=== PATIENT | female | born 1980 | race Caucasian/White ===

== ENCOUNTER 2022-01-31 23:58 | Inpatient (IN) | payer OTHER, SELFPAY ==
--- NOTE | ~2022-01-31 | US_ITS ---
EXAMINATION: US ABDOMEN COMPLETE CLINICAL INFORMATION: Elevated LFTs. COMPARISON: None TECHNIQUE: Real-time imaging of the abdominal viscera. FINDINGS: PANCREAS: Most of the pancreas is obscured by gas. ABDOMINAL AORTA: The proximal, mid, and distal segments are normal in caliber. INFERIOR VENA CAVA: Visualized portions are normal. LIVER: Liver measures 16.4 cm and is slightly enlarged. The liver contour is normal. There is diffuse increased liver echogenicity. No focal hepatic lesion. There is no intrahepatic biliary duct dilatation seen. GALLBLADDER: Normal. The gallbladder is physiologically distended without evidence of stones, sludge, polyps, wall thickening or pericholecystic fluid. COMMON BILE DUCT: Normal in caliber measuring 0.4 cm in diameter. RIGHT KIDNEY: Normal. No hydronephrosis. No renal calculi or focal parenchymal lesions. The kidney measures 10.5 cm in maximum dimension. LEFT KIDNEY: Normal. No hydronephrosis. No renal calculi or focal parenchymal lesions. The kidney measures 10.2 cm in maximum dimension. SPLEEN: Normal. The spleen measures 8.0 cm in maximum dimension. FREE FLUID: None. US/US abdomen complete IMPRESSION: Mild hepatomegaly with mild hepatic steatosis. No focal lesion seen. Otherwise unremarkable complete abdomen ultrasound.
[2022-02-01 00:15] VITALS: BP 142/73; PULSE 90; RESP 16; TEMP 36.8; O2SAT 97
[2022-02-01] MEDS: traZODone HCL 50 MG TABLET PO ×2 (01:23→02:20)
[2022-02-01] MEDS: hydrOXYzine HCL 25 MG TABLET PO ×2 (01:23→23:23)
[2022-02-01] MEDS: Nicotine Polacrilex 2 MG GUM 4 MG BUCCAL ×2 (01:23→15:11)
[2022-02-01 01:46] VITALS: BMI 21.5
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
[2022-02-01] MEDS: Folic Acid 1 MG TABLET PO (08:52)
[2022-02-01] MEDS: Thiamine HCL 100 MG TABLET PO (08:52)
[2022-02-01] MEDS: Multivitamin TABLET 1 TAB PO (08:52)
[2022-02-01 09:11] VITALS: BP 106/58; PULSE 95; RESP 17; TEMP 36.8; O2SAT 96
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
[2022-02-01] MEDS: Gabapentin 600 MG TABLET PO ×2 (15:14→20:56)
[2022-02-01] MEDS: DULoxetine HCl 30 MG CAPSULE.DR PO (15:14)
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
[2022-02-01] MEDS: Nicotine 21 MG PATCH.TD24 TRANSDERMA (16:42)
[2022-02-01] MEDS: oxyCODONE HCl Immed Release 5 MG TABLET 10 MG PO (20:08)
[2022-02-01] MEDS: Acetaminophen 325 MG TABLET 650 MG PO (20:10)
[2022-02-01] MEDS: Amitriptyline HCl 50 MG TABLET PO (20:56)
[2022-02-01 21:06] VITALS: BP 122/84; PULSE 99; RESP 18; TEMP 36.6; O2SAT 100
[2022-02-01] MEDS: Amitriptyline HCl 25 MG TABLET PO (23:23)
--- NOTE | 2022-02-02 08:00 | ECG_ITS ---
Test Reason : POST OVERDOSE Blood Pressure : / mmHG Vent. Rate : 079 BPM Atrial Rate : 079 BPM P-R Int : 154 ms QRS Dur : 100 ms QT Int : 378 ms P-R-T Axes : 081 048 057 degrees QTc Int : 433 ms Normal sinus rhythm Possible Left atrial enlargement RSR' or QR pattern in V1 suggests right ventricular conduction delay Borderline ECG No previous ECGs available Referred By: Saran Orourke Electronically Signed By:MABEL ESCOBAR
[2022-02-02 08:11] VITALS: BP 100/64; PULSE 106; RESP 17; TEMP 36.7; O2SAT 99
[2022-02-02] MEDS: Thiamine HCL 100 MG TABLET PO (08:20)
[2022-02-02] MEDS: Gabapentin 600 MG TABLET PO ×3 (08:20→20:17)
[2022-02-02] MEDS: Multivitamin TABLET 1 TAB PO (08:20)
[2022-02-02] MEDS: Nicotine 21 MG PATCH.TD24 TRANSDERMA (08:20)
[2022-02-02] MEDS: Folic Acid 1 MG TABLET PO (08:20)
[2022-02-02] MEDS: DULoxetine HCl 30 MG CAPSULE.DR PO (08:20)
[2022-02-02 08:42] LABS: Alanine Aminotransferase 166 U/L (0-31); Alkaline Phosphatase 128 U/L (39-117); Anion Gap 9 (12-20); Aspartate Amino Transferase 82 U/L (5-31); Bilirubin Total 0.4 mg/dL (0.0-1.0); Blood Urea Nitrogen 12 mg/dL (9-16); Calcium 9.7 mg/dL (8.4-10.2); Carbon Dioxide 32 mmol/L (22-29); Chloride 103 mmol/L (96-108); Cholesterol 218 mg/dL; Creatinine Clr Calc Pharmacy 93.3; Estimated Glomerular Filt Rate > 60; Glucose Fasting 90 mg/dL (60-99); HDL Cholesterol 62 mg/dL; LDL Cholesterol Calculated 139 mg/dl; Potassium 4.3 mmol/L (3.3-5.1); Sodium 140 mmol/L (135-145); Thyroid Stimulating Hormone 1.84 uIU/mL (0.32-4.0); Total Protein 6.9 g/dL (6.5-8.0); Triglycerides 87 mg/dL
[2022-02-02] MEDS: Acetaminophen 325 MG TABLET 650 MG PO ×2 (09:02→20:17)
--- NOTE | 2022-02-02 13:10 | P.PNPSI_ITS ---
Subjective Subjective Date of Service: 02/02/22 Reason For Visit: Depression s/p overdose Subjective Notes: Conditional Voluntary and 3 Day Interim History: 02/02: Improving mood. Depressed but no SI. Reflecting on serious OD. Asked for fresh air break. 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 OK to go on fresh air breaks. Ct meds per Dr Gamez Review of Systems Review of Systems negative except HPI Mental Status Exam Mental Status Exam Narrative: appropriately dressed and groomed in street clothes. no PMA/PMR. cooperative with interview, good eye contact. speech nml in amount, rate, loudness, tone, latency. thoughts linear and logical. affect somewhat flexible, normo-intense, non-labile (some tearfulness, though). mood thankful [to be alive]. does not recall any SI recently at all, despite her actions the day of the overdose. denies HI/AVH. Diagnostics Vital Signs (24Hr): Vital Signs - 24 hr 02/01/22 21:06 02/02/22 08:11 Temperature 97.9 F 98.0 F Pulse Rate 99 106 H Respiratory Rate 18 17 Blood Pressure 122/84 100/64 Pulse Oximetry 100 99 BMI result Body Mass Index 21.5 Labs Results: 02/02/22 07:33 Labs: Laboratory Results - last 48 hr 02/02/22 07:33 Sodium 140 Potassium 4.3 Chloride 103 Carbon Dioxide 32 H Anion Gap 9 L BUN 12 Creatinine 0.75 Estim Creat Clear Calc 93.3 Estimated GFR > 60 Fasting Glucose 90 Calcium 9.7 Total Bilirubin 0.4 AST 82 H ALT 166 H Alkaline Phosphatase 128 H Total Protein 6.9 Albumin 4.0 Triglycerides 87 Cholesterol 218 LDL Cholesterol, Calc 139 HDL Cholesterol 62 TSH 1.84 Medications Medications Current Medications Acetaminophen (Acetaminophen 325 Mg Tablet) 650 mg PO Q6H PRN PRN Reason: Headache/Pain Mild Scale (1-3) Last Admin: 02/02/22 09:02 Dose: 650 mg Documented by: Al Hydroxide/Mg Hydroxide (Magnesium Hydrox/Alum Hydrox 30 Ml Oral.Susp) 30 ml PO Q6H PRN PRN Reason: Heartburn/Nausea Amitriptyline HCl (Amitriptyline Hcl 50 Mg Tablet) 50 mg PO BEDTIME LESLIE Last Admin: 02/01/22 20:56 Dose: 50 mg Documented by: Amitriptyline HCl (Amitriptyline Hcl 25 Mg Tablet) 25 mg PO BEDTIME PRN PRN Reason: insomnia Last Admin: 02/01/22 23:23 Dose: 25 mg Documented by: Capsaicin (Capsaicin 0.025% Cream 60 Gm Tube) 1 appl TOPICAL QID PRN; Protocol PRN Reason: low back pain Duloxetine HCl (Duloxetine Hcl 30 Mg Capsule.Dr) 30 mg PO DAILY [facility] Last Admin: 02/02/22 08:20 Dose: 30 mg Documented by: Folic Acid (Folic Acid 1 Mg Tablet) 1 mg PO DAILY [facility] Last Admin: 02/02/22 08:20 Dose: 1 mg Documented by: Gabapentin (Gabapentin 600 Mg Tablet) 600 mg PO TID [facility] Last Admin: 02/02/22 08:20 Dose: 600 mg Documented by: Hydroxyzine HCl (Hydroxyzine Hcl 25 Mg Tablet) 25 mg PO BEDTIME PRN PRN Reason: Anxiety Last Admin: 02/01/22 23:23 Dose: 25 mg Documented by: Magnesium Hydroxide (Milk Of Magnesia 30 Ml Oral.Susp) 30 ml PO DAILY PRN PRN Reason: Constipation Multivitamins/Vitamin C (Multivitamin Tablet) 1 tab PO DAILY [facility] Last Admin: 02/02/22 08:20 Dose: 1 tab Documented by: Nicotine (Nicotine 21 Mg Patch.Td24) 21 mg TRANSDERMA DAILY [facility] Last Admin: 02/02/22 08:20 Dose: 21 mg Documented by: Nicotine Polacrilex (Nicotine Polacrilex 2 Mg Gum) 4 mg BUCCAL Q2H PRN PRN Reason: Nicotine Cravings Last Admin: 02/01/22 15:11 Dose: 4 mg Documented by: Oxycodone HCl (Oxycodone Hcl Immed Release 5 Mg Tablet) 10 mg PO DAILY PRN PRN Reason: severe pain Last Admin: 02/01/22 20:08 Dose: 10 mg Documented by: Thiamine HCl (Thiamine Hcl 100 Mg Tablet) 100 mg PO DAILY [facility] Last Admin: 02/02/22 08:20 Dose: 100 mg Documented by: Allergies Allergies Allergy/AdvReac Type Severity Reaction Status Date / Time morphine Allergy Itching Verified 02/01/22 00:31 Assessment & Plan Assessment & Plan (1) PTSD (post-traumatic stress disorder): Status: Acute Code(s): F43.10 - Post-traumatic stress disorder, unspecified Assessment and Plan: R/O (2) Borderline personality disorder: Status: Acute Code(s): F60.3 - Borderline personality disorder Assessment and Plan: R/O (3) Major depressive disorder: Status: Acute Code(s): F32.9 - Major depressive disorder, single episode, unspecified Plan anxiety and depression - start cymbalta as main Tx, elavil for insomnia. insomnia - elavil. titrate to effective dose. chronic pain - cymbalta, elavil, gabapentin, capsaicin, oxycodone. pt has never beeno nmore than 600 TID of gabapentin. titrate upward to max 3600 mg daily as needed for pain mgmt. has tried lidocaine without success. may use aspercreme if capsaicin ineffective. 02/02/22: Ct meds. OK for fresh air breaks. I spent minutes with the patient and/or on the patient floor today, great er than?50% of which was spent counseling/coordinating care. Reason for contiued inpatient stay Substantial Risk for: harm to self
[2022-02-02] MEDS: Amitriptyline HCl 50 MG TABLET PO (20:17)
[2022-02-02] MEDS: oxyCODONE HCl Immed Release 5 MG TABLET 10 MG PO (20:18)
[2022-02-02 20:40] VITALS: BP 132/78; PULSE 109; RESP 16; TEMP 36.6; O2SAT 99
[2022-02-02] MEDS: Amitriptyline HCl 25 MG TABLET PO (22:34)
[2022-02-02] MEDS: hydrOXYzine HCL 25 MG TABLET PO (22:34)
[2022-02-03 09:03] VITALS: BP 121/64; PULSE 106; RESP 17; TEMP 36.2; O2SAT 99
[2022-02-03] MEDS: Nicotine 21 MG PATCH.TD24 TRANSDERMA (09:19)
[2022-02-03] MEDS: DULoxetine HCl 30 MG CAPSULE.DR PO (09:19)
[2022-02-03] MEDS: Multivitamin TABLET 1 TAB PO (09:19)
[2022-02-03] MEDS: Gabapentin 600 MG TABLET PO ×3 (09:19→20:11)
[2022-02-03] MEDS: Thiamine HCL 100 MG TABLET PO (09:19)
[2022-02-03] MEDS: Folic Acid 1 MG TABLET PO (09:19)
--- NOTE | 2022-02-03 14:57 | P.PNPSI_ITS ---
Subjective Subjective Date of Service: 02/03/22 Reason For Visit: Depression s/p overdose Interim History: 02/02: Improving mood. Depressed but no SI. Reflecting on serious OD. Asked for fresh air break. 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 OK to go on fresh air breaks. Ct meds per Dr Gamez 02/03: Mood improving. Still has racing thoughts. OK for FA breakks. No SI. Elevated LFTs noted. Consult hospitalist Review of Systems Review of Systems negative except HPI Mental Status Exam Mental Status Exam Narrative: appropriately dressed and groomed in street clothes. no PMA/PMR. cooperative with interview, good eye contact. speech nml in amount, rate, loudness, tone, latency. thoughts linear and logical. affect somewhat flexible, normo-intense, non-labile (some tearfulness, though). mood thankful [to be alive]. does not recall any SI recently at all, despite her actions the day of the overdose. denies HI/AVH. Diagnostics Vital Signs (24Hr): Vital Signs - 24 hr 02/02/22 20:40 02/03/22 09:03 Temperature 98 F 97.2 F Pulse Rate 109 H 106 H Respiratory Rate 16 17 Blood Pressure 132/78 121/64 Pulse Oximetry 99 99 BMI result Body Mass Index 21.5 Labs Results: 02/02/22 07:33 Labs: Laboratory Results - last 48 hr 02/02/22 07:33 Sodium 140 Potassium 4.3 Chloride 103 Carbon Dioxide 32 H Anion Gap 9 L BUN 12 Creatinine 0.75 Estim Creat Clear Calc 93.3 Estimated GFR > 60 Fasting Glucose 90 Calcium 9.7 Total Bilirubin 0.4 AST 82 H ALT 166 H Alkaline Phosphatase 128 H Total Protein 6.9 Albumin 4.0 Triglycerides 87 Cholesterol 218 LDL Cholesterol, Calc 139 HDL Cholesterol 62 TSH 1.84 Medications Medications Current Medications Acetaminophen (Acetaminophen 325 Mg Tablet) 650 mg PO Q6H PRN PRN Reason: Headache/Pain Mild Scale (1-3) Last Admin: 02/02/22 20:17 Dose: 650 mg Documented by: Al Hydroxide/Mg Hydroxide (Magnesium Hydrox/Alum Hydrox 30 Ml Oral.Susp) 30 ml PO Q6H PRN PRN Reason: Heartburn/Nausea Amitriptyline HCl (Amitriptyline Hcl 50 Mg Tablet) 50 mg PO BEDTIME [facility] Last Admin: 02/02/22 20:17 Dose: 50 mg Documented by: Amitriptyline HCl (Amitriptyline Hcl 25 Mg Tablet) 25 mg PO BEDTIME PRN PRN Reason: insomnia Last Admin: 02/02/22 22:34 Dose: 25 mg Documented by: Capsaicin (Capsaicin 0.025% Cream 60 Gm Tube) 1 appl TOPICAL QID PRN; Protocol PRN Reason: low back pain Duloxetine HCl (Duloxetine Hcl 30 Mg Capsule.Dr) 30 mg PO DAILY [facility] Last Admin: 02/03/22 09:19 Dose: 30 mg Documented by: Folic Acid (Folic Acid 1 Mg Tablet) 1 mg PO DAILY [facility] Last Admin: 02/03/22 09:19 Dose: 1 mg Documented by: Gabapentin (Gabapentin 600 Mg Tablet) 600 mg PO TID [facility] Last Admin: 02/03/22 14:52 Dose: 600 mg Documented by: Hydroxyzine HCl (Hydroxyzine Hcl 25 Mg Tablet) 25 mg PO BEDTIME PRN PRN Reason: Anxiety Last Admin: 02/02/22 22:34 Dose: 25 mg Documented by: Magnesium Hydroxide (Milk Of Magnesia 30 Ml Oral.Susp) 30 ml PO DAILY PRN PRN Reason: Constipation Multivitamins/Vitamin C (Multivitamin Tablet) 1 tab PO DAILY [facility] Last Admin: 02/03/22 09:19 Dose: 1 tab Documented by: Nicotine (Nicotine 21 Mg Patch.Td24) 21 mg TRANSDERMA DAILY [facility] Last Admin: 02/03/22 09:19 Dose: 21 mg Documented by: Nicotine Polacrilex (Nicotine Polacrilex 2 Mg Gum) 4 mg BUCCAL Q2H PRN PRN Reason: Nicotine Cravings Last Admin: 02/01/22 15:11 Dose: 4 mg Documented by: Oxycodone HCl (Oxycodone Hcl Immed Release 5 Mg Tablet) 10 mg PO DAILY PRN PRN Reason: severe pain Last Admin: 02/02/22 20:18 Dose: 10 mg Documented by: Thiamine HCl (Thiamine Hcl 100 Mg Tablet) 100 mg PO DAILY [facility] Last Admin: 02/03/22 09:19 Dose: 100 mg Documented by: Allergies Allergies Allergy/AdvReac Type Severity Reaction Status Date / Time morphine Allergy Itching Verified 02/01/22 00:31 Assessment & Plan Assessment & Plan (1) PTSD (post-traumatic stress disorder): Status: Acute Code(s): F43.10 - Post-traumatic stress disorder, unspecified Assessment and Plan: R/O (2) Borderline personality disorder: Status: Acute Code(s): F60.3 - Borderline personality disorder Assessment and Plan: R/O (3) Major depressive disorder: Status: Acute Code(s): F32.9 - Major depressive disorder, single episode, unspecified Plan anxiety and depression - start cymbalta as main Tx, elavil for insomnia. insomnia - elavil. titrate to effective dose. chronic pain - cymbalta, elavil, gabapentin, capsaicin, oxycodone. pt has never beeno nmore than 600 TID of gabapentin. titrate upward to max 3600 mg daily as needed for pain mgmt. has tried lidocaine without success. may use aspercreme if capsaicin ineffective. 02/02/22: Ct meds. OK for fresh air breaks. 02/03: Ct plan. Plz consult hospitalist for elevated LFTs. I spent minutes with the patient and/or on the patient floor today, grea ter than?50% of which was spent counseling/coordinating care. Reason for contiued inpatient stay Substantial Risk for: harm to self
[2022-02-03 18:00] VITALS: BP 137/82; PULSE 116; RESP 18; TEMP 36.4; O2SAT 99
[2022-02-03] MEDS: Acetaminophen 325 MG TABLET 650 MG PO (20:11)
[2022-02-03] MEDS: Amitriptyline HCl 50 MG TABLET PO (20:11)
[2022-02-03] MEDS: hydrOXYzine HCL 25 MG TABLET PO (20:11)
[2022-02-03] MEDS: oxyCODONE HCl Immed Release 5 MG TABLET 10 MG PO (20:11)
[2022-02-03] MEDS: Amitriptyline HCl 25 MG TABLET PO (22:54)
[2022-02-04 08:36] VITALS: BP 118/72; PULSE 93; RESP 16; TEMP 36.3; O2SAT 100
[2022-02-04] MEDS: DULoxetine HCl 30 MG CAPSULE.DR PO (08:41)
[2022-02-04] MEDS: Thiamine HCL 100 MG TABLET PO (08:41)
[2022-02-04] MEDS: Acetaminophen 325 MG TABLET 650 MG PO ×2 (08:41→20:41)
[2022-02-04] MEDS: Folic Acid 1 MG TABLET PO (08:41)
[2022-02-04] MEDS: Multivitamin TABLET 1 TAB PO (08:41)
[2022-02-04] MEDS: Gabapentin 600 MG TABLET PO (08:41)
[2022-02-04] MEDS: Nicotine 21 MG PATCH.TD24 TRANSDERMA (08:42)
[2022-02-04] MEDS: Capsaicin 0.025% Cream 60 GM TUBE 1 APPL TOPICAL (08:50)
--- NOTE | 2022-02-04 15:27 | P.PNPSI_ITS ---
Subjective Subjective Date of Service: 02/04/22 Reason For Visit: Depression s/p overdose Interim History: pt reports she is sleeping well now, learning coping skills, wants to stay a bit longer to learn more. educated re PHP. capsaicin not working, wants aspercreme. 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 amenable to have LFTs rechecked tomorrow. per staff, mild anx. denies dep or SI. sleeping well. visible in milieu. watching movies. getting oxycodone PRNs. slept through the NOC. Mental Status Exam Mental Status Exam Narrative: appropriately dressed and groomed in street clothes. no PMA/PMR. cooperative with interview, good eye contact. speech nml in amount, rate, loudness, tone, latency. thoughts linear and logical. affect flexible, normo-intense, non-labile. mood improved. denies SI/HI/AVH. Diagnostics Vital Signs (24Hr): Vital Signs - 24 hr 02/03/22 18:00 02/04/22 08:36 Temperature 97.6 F 97.3 F Pulse Rate 116 H 93 Respiratory Rate 18 16 Blood Pressure 137/82 118/72 Pulse Oximetry 99 100 BMI result Body Mass Index 21.5 Labs Results: 02/02/22 07:33 Medications Medications Current Medications Acetaminophen (Acetaminophen 325 Mg Tablet) 650 mg PO Q6H PRN PRN Reason: Headache/Pain Mild Scale (1-3) Last Admin: 02/04/22 08:41 Dose: 650 mg Documented by: Al Hydroxide/Mg Hydroxide (Magnesium Hydrox/Alum Hydrox 30 Ml Oral.Susp) 30 ml PO Q6H PRN PRN Reason: Heartburn/Nausea Amitriptyline HCl (Amitriptyline Hcl 50 Mg Tablet) 50 mg PO BEDTIME [facility] Last Admin: 02/03/22 20:11 Dose: 50 mg Documented by: Amitriptyline HCl (Amitriptyline Hcl 25 Mg Tablet) 25 mg PO BEDTIME PRN PRN Reason: insomnia Last Admin: 02/03/22 22:54 Dose: 25 mg Documented by: Capsaicin (Capsaicin 0.025% Cream 60 Gm Tube) 1 appl TOPICAL QID PRN; Protocol PRN Reason: low back pain Last Admin: 02/04/22 08:50 Dose: 1 appl Documented by: Duloxetine HCl (Duloxetine Hcl 30 Mg Capsule.Dr) 30 mg PO DAILY [facility] Last Admin: 02/04/22 08:41 Dose: 30 mg Documented by: Folic Acid (Folic Acid 1 Mg Tablet) 1 mg PO DAILY [facility] Last Admin: 02/04/22 08:41 Dose: 1 mg Documented by: Gabapentin (Gabapentin 600 Mg Tablet) 900 mg PO TID [facility] Hydroxyzine HCl (Hydroxyzine Hcl 25 Mg Tablet) 25 mg PO BEDTIME PRN PRN Reason: Anxiety Last Admin: 02/03/22 20:11 Dose: 25 mg Documented by: Magnesium Hydroxide (Milk Of Magnesia 30 Ml Oral.Susp) 30 ml PO DAILY PRN PRN Reason: Constipation Multivitamins/Vitamin C (Multivitamin Tablet) 1 tab PO DAILY [facility] Last Admin: 02/04/22 08:41 Dose: 1 tab Documented by: Nicotine (Nicotine 21 Mg Patch.Td24) 21 mg TRANSDERMA DAILY [facility] Last Admin: 02/04/22 08:42 Dose: 21 mg Documented by: Nicotine Polacrilex (Nicotine Polacrilex 2 Mg Gum) 4 mg BUCCAL Q2H PRN PRN Reason: Nicotine Cravings Last Admin: 02/01/22 15:11 Dose: 4 mg Documented by: Oxycodone HCl (Oxycodone Hcl Immed Release 5 Mg Tablet) 5 mg PO DAILY PRN PRN Reason: severe pain Thiamine HCl (Thiamine Hcl 100 Mg Tablet) 100 mg PO DAILY [facility] Last Admin: 02/04/22 08:41 Dose: 100 mg Documented by: Allergies Allergies Allergy/AdvReac Type Severity Reaction Status Date / Time morphine Allergy Itching Verified 02/01/22 00:31 Assessment & Plan Assessment & Plan (1) PTSD (post-traumatic stress disorder): Status: Acute Code(s): F43.10 - Post-traumatic stress disorder, unspecified Assessment and Plan: R/O (2) Borderline personality disorder: Status: Acute Code(s): F60.3 - Borderline personality disorder Assessment and Plan: R/O (3) Major depressive disorder: Status: Acute Code(s): F32.9 - Major depressive disorder, single episode, unspecified Plan anxiety and depression - start cymbalta as main Tx, elavil for insomnia. insomnia - elavil. titrate to effective dose. chronic pain - cymbalta, elavil, gabapentin, capsaicin, oxycodone. pt has never beeno nmore than 600 TID of gabapentin. titrate upward to max 3600 mg daily as needed for pain mgmt. has tried lidocaine without success. may use aspercreme if capsaicin ineffective. 02/02/22: Ct meds. OK for fresh air breaks. 02/03: Ct plan. Plz consult hospitalist for elevated LFTs. 02/04: recheck LFTs tomorrow. acute alcoholic hepatitis? T/C antabuse. I spent ___25___ minutes with the patient and/or on the patient floor today, greater than?50% of which was spent counseling/coordinating care. Reason for contiued inpatient stay Substantial Risk for: harm to self and rapid decompensation
[2022-02-04] MEDS: Gabapentin 600 MG TABLET 900 MG PO ×2 (15:53→20:41)
[2022-02-04 20:30] VITALS: BP 133/95; PULSE 115; RESP 18; TEMP 36.6; O2SAT 97
[2022-02-04] MEDS: oxyCODONE HCl Immed Release 5 MG TABLET PO (20:41)
[2022-02-04] MEDS: Amitriptyline HCl 50 MG TABLET PO (20:41)
[2022-02-04] MEDS: hydrOXYzine HCL 25 MG TABLET PO (23:29)
[2022-02-04] MEDS: Amitriptyline HCl 25 MG TABLET PO (23:29)
[2022-02-05 06:00] VITALS: BP 110/58; PULSE 90; RESP 16; TEMP 36.4; O2SAT 100
[2022-02-05] MEDS: Acetaminophen 325 MG TABLET 650 MG PO ×2 (08:39→20:50)
[2022-02-05] MEDS: Gabapentin 300 MG CAPSULE 900 MG PO ×3 (08:39→20:49)
[2022-02-05] MEDS: Multivitamin TABLET 1 TAB PO (08:40)
[2022-02-05] MEDS: Folic Acid 1 MG TABLET PO (08:40)
[2022-02-05] MEDS: DULoxetine HCl 30 MG CAPSULE.DR PO (08:40)
[2022-02-05] MEDS: Thiamine HCL 100 MG TABLET PO (08:40)
[2022-02-05] MEDS: Nicotine 21 MG PATCH.TD24 TRANSDERMA (08:40)
[2022-02-05 09:30] LABS: Alanine Aminotransferase 156 U/L (0-31); Albumin Level 3.9 g/dL (3.5-5.0); Alkaline Phosphatase 135 U/L (39-117); Aspartate Amino Transferase 130 U/L (5-31); Bilirubin Direct < 0.2 mg/dL (0.0-0.5); Bilirubin Total < 0.2 mg/dL (0.0-1.0); Total Protein 6.7 g/dL (6.5-8.0)
[2022-02-05] MEDS: Ibuprofen 600 MG TABLET PO ×2 (13:41→23:07)
--- NOTE | 2022-02-05 14:00 | HO.PSYCHPN ---
Subjective Subjective Date of Service: 02/05/22 Reason For Visit: Depression s/p overdose Interim History: pt reports she is doing good. asking questions about PHP hours and structure and services. proud of myself. wants to get back home to see her daughter. LFTs reviewed, noted to be no better and perhaps worse than before; agreeable to medicine consult. per staff, active, appropriate in groups. pleasant, visible. good sleep and appetite. 10/10 back pain this morning. got oxycodone last night. neither capsaicin nor aspercreme working. hopeful, good mood. low anxiety. Mental Status Exam Mental Status Exam Narrative: appropriately dressed and groomed in street clothes. no PMA/PMR. cooperative with interview, good eye contact. speech nml in amount, rate, loudness, tone, latency. thoughts linear and logical. affect flexible, normo-intense, non-labile. mood improved. denies SI/HI/AVH. Diagnostics Vital Signs (24Hr): Vital Signs - 24 hr 02/04/22 20:30 02/05/22 06:00 Temperature 97.8 F 97.6 F Pulse Rate 115 H 90 Respiratory Rate 18 16 Blood Pressure 133/95 H 110/58 L Pulse Oximetry 97 100 BMI result Body Mass Index 21.5 Labs Results: 02/02/22 07:33 Labs: Laboratory Results - last 48 hr 02/05/22 08:32 Total Bilirubin < 0.2 Direct Bilirubin < 0.2 AST 130 H ALT 156 H Alkaline Phosphatase 135 H Total Protein 6.7 Albumin 3.9 Medications Medications Current Medications Acetaminophen (Acetaminophen 325 Mg Tablet) 650 mg PO Q6H PRN PRN Reason: Headache/Pain Mild Scale (1-3) Last Admin: 02/05/22 08:39 Dose: 650 mg Documented by: Al Hydroxide/Mg Hydroxide (Magnesium Hydrox/Alum Hydrox 30 Ml Oral.Susp) 30 ml PO Q6H PRN PRN Reason: Heartburn/Nausea Amitriptyline HCl (Amitriptyline Hcl 50 Mg Tablet) 50 mg PO BEDTIME [facility] Last Admin: 02/04/22 20:41 Dose: 50 mg Documented by: Amitriptyline HCl (Amitriptyline Hcl 25 Mg Tablet) 25 mg PO BEDTIME PRN PRN Reason: insomnia Last Admin: 02/04/22 23:29 Dose: 25 mg Documented by: Capsaicin (Capsaicin 0.025% Cream 60 Gm Tube) 1 appl TOPICAL QID PRN; Protocol PRN Reason: low back pain Last Admin: 02/04/22 08:50 Dose: 1 appl Documented by: Duloxetine HCl (Duloxetine Hcl 30 Mg Capsule.Dr) 30 mg PO DAILY [facility] Last Admin: 02/05/22 08:40 Dose: 30 mg Documented by: Folic Acid (Folic Acid 1 Mg Tablet) 1 mg PO DAILY [facility] Last Admin: 02/05/22 08:40 Dose: 1 mg Documented by: Gabapentin (Gabapentin 300 Mg Capsule) 900 mg PO TID [facility] Last Admin: 02/05/22 08:39 Dose: 900 mg Documented by: Hydroxyzine HCl (Hydroxyzine Hcl 25 Mg Tablet) 25 mg PO BEDTIME PRN PRN Reason: Anxiety Last Admin: 02/04/22 23:29 Dose: 25 mg Documented by: Ibuprofen (Ibuprofen 600 Mg Tablet) 600 mg PO Q6H PRN PRN Reason: Pain, Moderate (Pain Scale 4-6 Last Admin: 02/05/22 13:41 Dose: 600 mg Documented by: Magnesium Hydroxide (Milk Of Magnesia 30 Ml Oral.Susp) 30 ml PO DAILY PRN PRN Reason: Constipation Multivitamins/Vitamin C (Multivitamin Tablet) 1 tab PO DAILY [facility] Last Admin: 02/05/22 08:40 Dose: 1 tab Documented by: Nicotine (Nicotine 21 Mg Patch.Td24) 21 mg TRANSDERMA DAILY [facility] Last Admin: 02/05/22 08:40 Dose: 21 mg Documented by: Nicotine Polacrilex (Nicotine Polacrilex 2 Mg Gum) 4 mg BUCCAL Q2H PRN PRN Reason: Nicotine Cravings Last Admin: 02/01/22 15:11 Dose: 4 mg Documented by: Oxycodone HCl (Oxycodone Hcl Immed Release 5 Mg Tablet) 5 mg PO DAILY PRN PRN Reason: severe pain Last Admin: 02/04/22 20:41 Dose: 5 mg Documented by: Thiamine HCl (Thiamine Hcl 100 Mg Tablet) 100 mg PO DAILY [facility] Last Admin: 02/05/22 08:40 Dose: 100 mg Documented by: Trolamine Salicylate/Aloe Vera (Trolamine Salicylate 10%/Aloe Cream 35.4 Gm) 1 appl TOPICAL QID PRN PRN Reason: Pain, Moderate (Pain Scale 4-6 Last Admin: 02/04/22 20:44 Dose: 1 appl Documented by: Allergies Allergies Allergy/AdvReac Type Severity Reaction Status Date / Time morphine Allergy Itching Verified 02/01/22 00:31 Assessment & Plan Assessment & Plan (1) PTSD (post-traumatic stress disorder): Status: Acute Code(s): F43.10 - Post-traumatic stress disorder, unspecified Assessment and Plan: R/O (2) Borderline personality disorder: Status: Acute Code(s): F60.3 - Borderline personality disorder Assessment and Plan: R/O (3) Major depressive disorder: Status: Acute Code(s): F32.9 - Major depressive disorder, single episode, unspecified Plan anxiety and depression - start cymbalta as main Tx, elavil for insomnia. insomnia - elavil. titrate to effective dose. chronic pain - cymbalta, elavil, gabapentin, capsaicin, oxycodone. pt has never beeno nmore than 600 TID of gabapentin. titrate upward to max 3600 mg daily as needed for pain mgmt. has tried lidocaine without success. may use aspercreme if capsaicin ineffective. 02/02/22: Ct meds. OK for fresh air breaks. 02/03: Ct plan. Plz consult hospitalist for elevated LFTs. 02/04: recheck LFTs tomorrow. acute alcoholic hepatitis? T/C antabuse. 02/05: LFTs remain elevated. hold on antabuse start. hospitalist consult for elevated LFTs. I spent ___25___ minutes with the patient and/or on the patient floor today, greater than?50% of which was spent counseling/coordinating care. Reason for contiued inpatient stay Substantial Risk for: harm to self, inability to function and rapid decompensation
[2022-02-05 20:00] VITALS: BP 133/78; PULSE 113; RESP 18; TEMP 36.6; O2SAT 99
[2022-02-05] MEDS: oxyCODONE HCl Immed Release 5 MG TABLET PO (20:49)
[2022-02-05] MEDS: Amitriptyline HCl 50 MG TABLET PO (20:49)
[2022-02-05] MEDS: hydrOXYzine HCL 25 MG TABLET PO (20:50)
[2022-02-05] MEDS: Amitriptyline HCl 25 MG TABLET PO (23:07)
[2022-02-05] MEDS: Capsaicin 0.025% Cream 60 GM TUBE 1 APPL TOPICAL (23:12)
[2022-02-06 08:35] VITALS: BP 105/66; PULSE 84; RESP 17; TEMP 36.6; O2SAT 98
[2022-02-06] MEDS: Nicotine 21 MG PATCH.TD24 TRANSDERMA (08:37)
[2022-02-06] MEDS: Thiamine HCL 100 MG TABLET PO (08:38)
[2022-02-06] MEDS: DULoxetine HCl 30 MG CAPSULE.DR PO (08:38)
[2022-02-06] MEDS: Folic Acid 1 MG TABLET PO (08:38)
[2022-02-06] MEDS: Gabapentin 300 MG CAPSULE 900 MG PO ×3 (08:38→20:24)
[2022-02-06] MEDS: Multivitamin TABLET 1 TAB PO (08:38)
[2022-02-06 09:27] LABS: Cholesterol 195 mg/dL; HDL Cholesterol 45 mg/dL; LDL Cholesterol Calculated 113 mg/dl; Triglycerides 189 mg/dL
[2022-02-06 10:06] LABS: Estimated Average Glucose 91 mg/dL; Hemoglobin A1c % 4.8 %
[2022-02-06 10:18] LABS: HBS Num1 1.58 mIU/mL (0-7.99); HBc Num1 0.05 S/CO (0.00-0.79); HBsAGNum1 0.15 S/CO (0.00-0.99); Hepatitis B Core Antibody Nonreactive (Nonreactive); Hepatitis B Surface Antigen Negative (Negative); ~HepC Num1 0.07 S/CO (0.00-0.79); ~Hepatitis B Surface Antibody NONREACTIVE (Nonreactive); ~Hepatitis C Antibody Nonreactive (Nonreactive)
--- NOTE | 2022-02-06 13:04 | HO.PSYCHPN ---
Subjective Subjective Date of Service: 02/06/22 Reason For Visit: Depression s/p overdose Interim History: pt found resting in her room. polite, pleasant, cooperative. full range of affect, happy to be discharging tomorrow. looking forward to seeing her daughter, with whom she talks nightly. asking about restarting baclofen, c/o CP yesterday. aware she will be seen by hospitalist, case discussed with hospitalist. per staff, attending groups. denies anx/dep. tired in the morning but more active in the afternoon. eating and sleeping OK. wants to discharge KEN. Mental Status Exam Mental Status Exam Narrative: appropriately dressed and groomed in street clothes. no PMA/PMR. cooperative with interview, good eye contact. speech nml in amount, rate, loudness, tone, latency. thoughts linear and logical. affect flexible and full range, normo-intense, non-labile. mood good. denies SI/HI/AVH. Diagnostics Vital Signs (24Hr): Vital Signs - 24 hr 02/05/22 20:00 02/06/22 08:35 Temperature 97.9 F 97.9 F Pulse Rate 113 H 84 Respiratory Rate 18 17 Blood Pressure 133/78 105/66 Pulse Oximetry 99 98 BMI result Body Mass Index 21.5 Labs Results: 02/02/22 07:33 Labs: Laboratory Results - last 48 hr 02/05/22 02/06/22 02/06/22 08:32 08:34 08:34 Estimat Average Glucose 91 Hemoglobin A1c % 4.8 Total Bilirubin < 0.2 Direct Bilirubin < 0.2 AST 130 H ALT 156 H Alkaline Phosphatase 135 H Total Protein 6.7 Albumin 3.9 Triglycerides 189 Cholesterol 195 LDL Cholesterol, Calc 113 HDL Cholesterol 45 D Hep Bs Antigen Hep Bs Antibody Hep B Core Total Ab Hepatitis C Ab (EIA) 02/06/22 08:34 Estimat Average Glucose Hemoglobin A1c % Total Bilirubin Direct Bilirubin AST ALT Alkaline Phosphatase Total Protein Albumin Triglycerides Cholesterol LDL Cholesterol, Calc HDL Cholesterol Hep Bs Antigen Negative Hep Bs Antibody NONREACTIVE Hep B Core Total Ab Nonreactive Hepatitis C Ab (EIA) Nonreactive Medications Medications Current Medications Acetaminophen (Acetaminophen 325 Mg Tablet) 650 mg PO Q6H PRN PRN Reason: Headache/Pain Mild Scale (1-3) Last Admin: 02/05/22 20:50 Dose: 650 mg Documented by: Al Hydroxide/Mg Hydroxide (Magnesium Hydrox/Alum Hydrox 30 Ml Oral.Susp) 30 ml PO Q6H PRN PRN Reason: Heartburn/Nausea Amitriptyline HCl (Amitriptyline Hcl 50 Mg Tablet) 50 mg PO BEDTIME [facility] Last Admin: 02/05/22 20:49 Dose: 50 mg Documented by: Amitriptyline HCl (Amitriptyline Hcl 25 Mg Tablet) 25 mg PO BEDTIME PRN PRN Reason: insomnia Last Admin: 02/05/22 23:07 Dose: 25 mg Documented by: Capsaicin (Capsaicin 0.025% Cream 60 Gm Tube) 1 appl TOPICAL QID PRN; Protocol PRN Reason: low back pain Last Admin: 02/05/22 23:12 Dose: 1 appl Documented by: Duloxetine HCl (Duloxetine Hcl 30 Mg Capsule.Dr) 30 mg PO DAILY [facility] Last Admin: 02/06/22 08:38 Dose: 30 mg Documented by: Folic Acid (Folic Acid 1 Mg Tablet) 1 mg PO DAILY [facility] Last Admin: 02/06/22 08:38 Dose: 1 mg Documented by: Gabapentin (Gabapentin 300 Mg Capsule) 900 mg PO TID [facility] Last Admin: 02/06/22 08:38 Dose: 900 mg Documented by: Hydroxyzine HCl (Hydroxyzine Hcl 25 Mg Tablet) 25 mg PO BEDTIME PRN PRN Reason: Anxiety Last Admin: 02/05/22 20:50 Dose: 25 mg Documented by: Ibuprofen (Ibuprofen 600 Mg Tablet) 600 mg PO Q6H PRN PRN Reason: Pain, Moderate (Pain Scale 4-6 Last Admin: 02/05/22 23:07 Dose: 600 mg Documented by: Magnesium Hydroxide (Milk Of Magnesia 30 Ml Oral.Susp) 30 ml PO DAILY PRN PRN Reason: Constipation Multivitamins/Vitamin C (Multivitamin Tablet) 1 tab PO DAILY [facility] Last Admin: 02/06/22 08:38 Dose: 1 tab Documented by: Nicotine (Nicotine 21 Mg Patch.Td24) 21 mg TRANSDERMA DAILY [facility] Last Admin: 02/06/22 08:37 Dose: 21 mg Documented by: Nicotine Polacrilex (Nicotine Polacrilex 2 Mg Gum) 4 mg BUCCAL Q2H PRN PRN Reason: Nicotine Cravings Last Admin: 02/01/22 15:11 Dose: 4 mg Documented by: Oxycodone HCl (Oxycodone Hcl Immed Release 5 Mg Tablet) 5 mg PO DAILY PRN PRN Reason: severe pain Last Admin: 02/05/22 20:49 Dose: 5 mg Documented by: Thiamine HCl (Thiamine Hcl 100 Mg Tablet) 100 mg PO DAILY [facility] Last Admin: 02/06/22 08:38 Dose: 100 mg Documented by: Trolamine Salicylate/Aloe Vera (Trolamine Salicylate 10%/Aloe Cream 35.4 Gm) 1 appl TOPICAL QID PRN PRN Reason: Pain, Moderate (Pain Scale 4-6 Last Admin: 02/05/22 23:11 Dose: 1 appl Documented by: Allergies Allergies Allergy/AdvReac Type Severity Reaction Status Date / Time morphine Allergy Itching Verified 02/01/22 00:31 Assessment & Plan Assessment & Plan (1) PTSD (post-traumatic stress disorder): Status: Acute Code(s): F43.10 - Post-traumatic stress disorder, unspecified (2) Borderline personality disorder: Status: Acute Code(s): F60.3 - Borderline personality disorder (3) Major depressive disorder: Status: Acute Code(s): F32.9 - Major depressive disorder, single episode, unspecified Plan anxiety and depression - start cymbalta as main Tx, elavil for insomnia. insomnia - elavil.? titrate to effective dose. chronic pain - cymbalta, elavil, gabapentin, capsaicin, oxycodone.? pt has never been on more than 600 TID of gabapentin.? titrate upward to max 3600 mg daily as needed for pain mgmt.? has tried lidocaine without success.? may use aspercreme if capsaicin ineffective. 02/02/22: Ct meds. OK for fresh air breaks. 02/03: Ct plan. Plz consult hospitalist for elevated LFTs. 02/04: recheck LFTs tomorrow.? acute alcoholic hepatitis?? T/C antabuse. 02/05: LFTs remain elevated.? hold on antabuse start.? hospitalist consult for elevated LFTs. 02/06: medical eval underway for elevated LFTs. mood improved. restarted PRN baclofen today. discharge tomorrow. I spent __35____ minutes with the patient and/or on the patient floor today, greater than?50% of which was spent counseling/coordinating care. Reason for contiued inpatient stay Substantial Risk for: harm to self, inability to function and rapid decompensation
[2022-02-06] MEDS: Amitriptyline HCl 50 MG TABLET PO (20:24)
[2022-02-06] MEDS: Acetaminophen 325 MG TABLET 650 MG PO (20:24)
[2022-02-06] MEDS: Baclofen 10 MG TABLET 5 MG PO (20:25)
[2022-02-06] MEDS: oxyCODONE HCl Immed Release 5 MG TABLET PO (20:25)
[2022-02-06] MEDS: hydrOXYzine HCL 25 MG TABLET PO (20:25)
[2022-02-06 20:40] VITALS: BP 134/86; PULSE 98; TEMP 37; O2SAT 95
[2022-02-06] MEDS: Amitriptyline HCl 25 MG TABLET PO (23:01)
[2022-02-07 08:46] VITALS: BP 125/78; PULSE 88; RESP 16; TEMP 36.8; O2SAT 100
[2022-02-07] MEDS: DULoxetine HCl 30 MG CAPSULE.DR PO (08:53)
[2022-02-07] MEDS: Multivitamin TABLET 1 TAB PO (08:53)
[2022-02-07] MEDS: Ibuprofen 600 MG TABLET PO (08:53)
[2022-02-07] MEDS: Folic Acid 1 MG TABLET PO (08:53)
[2022-02-07] MEDS: Gabapentin 300 MG CAPSULE 900 MG PO (08:53)
[2022-02-07] MEDS: Thiamine HCL 100 MG TABLET PO (08:53)
[2022-02-07 09:06] LABS: INTERNATIONAL NORM RATIO 0.9 (0.9-1.1); Prothrombin Time 9.7 SEC (9.9-13.0)
[2022-02-07 09:56] VITALS: BMI 21.4
[2022-02-07] MEDS: oxyCODONE HCl Immed Release 5 MG TABLET PO (10:00)
[2022-02-07 10:33] LABS: Alanine Aminotransferase 204 U/L (0-31); Albumin Level 3.7 g/dL (3.5-5.0); Alkaline Phosphatase 141 U/L (39-117); Anion Gap 11 (12-20); Aspartate Amino Transferase 127 U/L (5-31); Bilirubin Direct < 0.2 mg/dL (0.0-0.5); Bilirubin Total < 0.2 mg/dL (0.0-1.0); Blood Urea Nitrogen 11 mg/dL (9-16); Calcium 9.3 mg/dL (8.4-10.2); Carbon Dioxide 29 mmol/L (22-29); Chloride 104 mmol/L (96-108); Creatinine Clr Calc Pharmacy 95.9; Estimated Glomerular Filt Rate > 60; Glucose Fasting 88 mg/dL (60-99); Potassium 4.6 mmol/L (3.3-5.1); Sodium 139 mmol/L (135-145); Total Protein 6.2 g/dL (6.5-8.0)
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
== END 2022-02-07 12:41 | disposition home or self-care (01) | DRG 881 ==
PROVIDERS: Internal Medicine; Psychiatry & Neurology Psychiatry; Admitting Provider Psychiatry & Neurology Psychiatry; Visit Provider Psychiatry & Neurology Psychiatry
DX: F32.9 Major depressive disorder, single episode, unspecified (principal); R45.851 Suicidal ideations; F43.10 Post-traumatic stress disorder, unspecified; F60.3 Borderline personality disorder; G47.00 Insomnia, unspecified; G89.21 Chronic pain due to trauma; F17.210 Nicotine dependence, cigarettes, uncomplicated; Z71.6 Tobacco abuse counseling; Z88.5 Allergy status to narcotic agent; Z79.899 Other long term (current) drug therapy; Z91.51 Personal history of suicidal behavior; Z91.52 Personal history of nonsuicidal self-harm
CPT/HCPCS: 36415; 76700; 80048; 80053; 80061; 80076; 83036; 84443; 85610; 86704; 86706; 86803; 87340; 93005